=== PATIENT | male | born 1950 | race Two or more races ===

== ENCOUNTER 2021-03-12 18:21 | Inpatient (IN) | payer OTHER ==
[~2021-03-12] VITALS: Ht 182.9 cm; Wt 108.9 kg
[2021-03-12] MEDS ORDERED: METRONIDAZOLE500 MG PO (18:46)
[2021-03-12] MEDS ORDERED: PANTOPRAZOLE SO40 M2 PO (18:46)
[2021-03-12] MEDS ORDERED: INSULIN SYRING1 EA29 MC (18:48)
[2021-03-12] MEDS ORDERED: LIPITOR80 MG PO (18:48)
[2021-03-12] MEDS ORDERED: LANTUS SOL100 UNIT/1 SQ (18:48)
[2021-03-12] MEDS ORDERED: AVALIDE 300-121 EACH PO (18:48)
[2021-03-13] MEDS ORDERED: TADALAFIL20 MG (08:23)
== END 2021-03-20 13:58 | disposition home or self-care (01) | DRG 982 ==
LOC: ER 18:21 → MEDJ 23:17
PROVIDERS: ADMIT Internal Medicine; ATTEND Internal Medicine
PROC: B53CZZZ Magnetic Resonance Imaging (MRI) of Left Lower Extremity Veins (ICD-10-PCS; 2021-03-13)
PROC: B44HZZZ Ultrasonography of Bilateral Lower Extremity Arteries (ICD-10-PCS; 2021-03-13)
PROC: 0JDR0ZZ Extraction of Left Foot Subcutaneous Tissue and Fascia, Open Approach (ICD-10-PCS; principal; 2021-03-14)
PROC: 0J9R0ZZ Drainage of Left Foot Subcutaneous Tissue and Fascia, Open Approach (ICD-10-PCS; 2021-03-14)
PROC: 02HV33Z Insertion of Infusion Device into Superior Vena Cava, Percutaneous Approach (ICD-10-PCS; 2021-03-14)
DX: E11.621 Type 2 diabetes mellitus with foot ulcer (principal); L97.423 Non-pressure chronic ulcer of left heel and midfoot with necrosis of muscle; L03.116 Cellulitis of left lower limb; E11.65 Type 2 diabetes mellitus with hyperglycemia; E11.40 Type 2 diabetes mellitus with diabetic neuropathy, unspecified; D72.828 Other elevated white blood cell count; I10 Essential (primary) hypertension; E78.5 Hyperlipidemia, unspecified; Z79.4 Long term (current) use of insulin; Z86.16 Personal history of COVID-19; E66.9 Obesity, unspecified

== ENCOUNTER 2022-08-17 09:19 | Outpatient (CLI) | payer OTHER ==
[~2022-08-17 09:19] MED LIST: AVALIDE 300-121 EACH PO; INSULIN SYRING1 EA29 MC; LANTUS SOL100 UNIT/1 SQ; LIPITOR80 MG PO; METRONIDAZOLE500 MG PO; PANTOPRAZOLE SO40 M2 PO; TADALAFIL20 MG
== END 2022-08-17 09:34 | disposition home or self-care (01) ==
LOC: SONOGRAMA 09:19
PROVIDERS: ATTEND Physical Medicine & Rehabilitation
DX: K76.0 Fatty (change of) liver, not elsewhere classified (principal)

== ENCOUNTER 2022-10-20 04:27 | Inpatient (IN) | payer OTHER ==
[~2022-10-20] VITALS: Ht 182.9 cm; Wt 109.8 kg
[2022-10-20] MEDS ORDERED: JARDIANCE25 MG PO (04:40)
[2022-10-21] MEDS ORDERED: DULOXETINE HCL30 MG (08:41)
[2022-10-21] MEDS ORDERED: FLUCONAZOLE100 MG (08:41)
[2022-10-21] MEDS ORDERED: SYNJARDY 12.5-1 EAC1 (08:42)
[2022-10-21] MEDS ORDERED: OZEMPIC0.25 MG/01 (08:42)
== END 2022-10-23 14:59 | disposition home or self-care (01) | DRG 639 ==
LOC: ER 04:27 → ICU-2 08:22
PROVIDERS: General Practice; ADMIT Internal Medicine; ATTEND Internal Medicine
PROC: 4A12X4Z Monitoring of Cardiac Electrical Activity, External Approach (ICD-10-PCS; principal; 2022-10-20)
PROC: 3E0F7SF Introduction of Other Gas into Respiratory Tract, Via Natural or Artificial Opening (ICD-10-PCS; 2022-10-20)
DX: E11.10 Type 2 diabetes mellitus with ketoacidosis without coma (principal); I10 Essential (primary) hypertension; Z79.4 Long term (current) use of insulin

== ENCOUNTER 2022-12-06 12:20 | Outpatient (CLI) | payer OTHER ==
[~2022-12-06 12:20] MED LIST changes: +DULOXETINE HCL30 MG; +FLUCONAZOLE100 MG; +JARDIANCE25 MG PO; +OZEMPIC0.25 MG/01; +SYNJARDY 12.5-1 EAC1
== END 2022-12-06 12:30 | disposition home or self-care (01) ==
LOC: RAD 12:20
PROVIDERS: ATTEND Internal Medicine
DX: S19.9XXA Unspecified injury of neck, initial encounter (principal); M25.512 Pain in left shoulder; M25.511 Pain in right shoulder; T14.8XXA Other injury of unspecified body region, initial encounter

== ENCOUNTER 2022-12-23 11:07 | Outpatient (CLI) | payer OTHER | END 2022-12-23 11:08 | disposition home or self-care (01) | LOC: NUCLEAR 11:07 | PROVIDERS: ATTEND Internal Medicine | DX: I73.9 Peripheral vascular disease, unspecified (principal); I87.2 Venous insufficiency (chronic) (peripheral) ==

== ENCOUNTER 2023-04-25 12:09 | Outpatient (CLI) | payer OTHER ==
[~2023-04-25 12:09] MED LIST changes: +VOLTAREN ARTHRI20 GM TOP
== END 2023-04-25 12:19 | disposition home or self-care (01) ==
LOC: SONOGRAMA 12:09
PROVIDERS: ATTEND Physical Medicine & Rehabilitation
DX: M25.512 Pain in left shoulder (principal)

== ENCOUNTER → 2023-10-17 10:04 | Outpatient (CLI) | payer OTHER | END | disposition home or self-care (01) | LOC: NUCLEAR 10:00 | DX: I73.9 Peripheral vascular disease, unspecified (principal) ==

== ENCOUNTER → 2023-11-23 | Outpatient (CLI) | payer OTHER | END | disposition home or self-care (01) | LOC: WOUND MED 09:30 | PROVIDERS: ATTEND Surgery | DX: L97.522 Non-pressure chronic ulcer of other part of left foot with fat layer exposed (principal) | CPT/HCPCS: 97602; A4927; A6021; A6223 ==

== ENCOUNTER 2024-05-21 11:21 | Inpatient (IN) | payer OTHER ==
[~2024-05-21] VITALS: Ht 182.9 cm; Wt 113.4 kg
--- NOTE | 2024-05-21 12:21 | NUR ---
PACIENTE REFIERE MALESTAR GENERAL Y DOLOR EN PIE JON DESDE HACE 3 PAT[address]SON. SE MIDEN Y REPORTAN SIGNOS VITALES Y SE UBICA EN AREA DE FAST TRACK.
[2024-05-21] MEDS ORDERED: 0.9 % SODIUM CHLORIDE 1,000 ML IV STA (13:59)
[2024-05-21] MEDS ORDERED: PIPERACILLIN/TAZOBACTAM SODIUM 3.375 GM VIAL IV STA (14:00)
[2024-05-21] MEDS ORDERED: KETOROLAC TROMETHAMINE 30 MG VIAL IV STA (14:00)
[2024-05-21 16:16] LABS: PH,URINE 5.5 (5.0-8.0); URINE APPEARANCE Clear; URINE BILIRRUBIN Negative (NEGATIVE); URINE BLOOD Negative; URINE COLOR Yellow; URINE KETONE 15 (NEGATIVE); URINE LEUKOCYTE Negative; URINE NITRATE Negative; URINE PROTEIN Trace (NEGATIVE); URINE UROBILINOGEN 0.2 E.U./dl
[2024-05-21 16:20] LABS: URINE RBC 3.8 uL (0.0-20.8)
--- NOTE | 2024-05-21 16:46 | NUR ---
SE ORIENTA PTE SOBRE TX A SEGUIR, EL MISMO REFIERE ENTENDER. SE DAVION MUESTRA DE LAB, SE CANALIZA Y SE ADMINISTRA MED LEWIS ORDEN MEDICA
[2024-05-21 16:50] LABS: URINE BACTERIA 3.6 uL (0.0-1933); URINE EPITHELIAL CELLS 1.1 uL (0.0-38.8); URINE GLUCOSE 100 MG/DL (NEGATIVE); URINE WBC 0.3 uL (0.0-23.2)
[2024-05-21 16:51] LABS: ERYTHROCYTE SEDIMENTATION RATE 44 mm/hr
[2024-05-21 16:52] LABS: HEMATOCRIT 41.7 % (39.0-48.0); HEMOGLOBIN 14.4 g/dL (13-16.00); MEAN CELL VOLUME 93.4 fL (80.0-100.00); MEAN CORPUSCULAR HEMOGLOBIN 32.2 pg (27.00-32.0); MEAN CORPUSCULAR HGB CONC 34.5 g/dl (32.0-36.0); PLATELET COUNT 164 K/uL (150-450); RED BLOOD COUNT 4.47 M/uL (4.00-6.00); RED CELL DISTRIBUTION WIDTH 14.2 % (11.5-14.5)
[2024-05-21 17:11] LABS: ALBUMIN 3.2 gm/dL (3.4-5.0); BILIRUBIN TOTAL 0.91 mg/dL (0.3-1.2); CREATININE SERUM 0.71 mg/dL (0.70-1.30); GFR 108.75; GLOBULINA 3.8 G/DL (2.4-3.5); POTASSIUM 4.35 mEq/L (3.5-5.1)
[2024-05-21] MEDS ORDERED: OSELTAMIVIR PHOSPHATE 75 MG CAPSULE PO ONE (20:00)
[2024-05-21] MEDS ORDERED: ASPIRIN 81 MG TABLET.EC PO ONE (20:00)
[2024-05-21] MEDS ORDERED: BENZONATATE 100 MG CAPSULE PO SCH (23:41)
[2024-05-21] MEDS ORDERED: ACETAMINOPHEN 500 MG GEL..CAP PO PRN (23:45)
[2024-05-21] MEDS ORDERED: INSULIN LISPRO 1,000 UNIT/10 ML UNITS SUBCUTANEO PRN (23:45)
[2024-05-21] MEDS ORDERED: 0.9 % SODIUM CHLORIDE 1,000 ML IV SCH (23:45)
[2024-05-21] MEDS ORDERED: DEXTROSE 50 % IN WATER 0.5 G/ML DISP.SYRIN IV PRN (23:45)
[2024-05-22] MEDS ORDERED: PIPERACILLIN/TAZOBACTAM SODIUM 3.375 GM in DEXTROSE 5 % IN WATER 100 ML IV SCH
[2024-05-22 07:12] LABS: INR 1.02; PARTIAL THROMBOPLASTIN TIME 28.2 SECONDS (22.0-34.0); PROTHROMBIN TIME 11.1 SECONDS (9.0-11.5)
[2024-05-22 08:13] VITALS: BP 166/89; O2SAT 95
[2024-05-22] MEDS ORDERED: VANCOMYCIN HCL 1,000 MG VIAL IV STA (08:13)
[2024-05-22] MEDS ORDERED: ENOXAPARIN SODIUM 40 MG/0.4 ML SYRINGE SUBCUTANEO SCH (09:00)
[2024-05-22] MEDS ORDERED: OSELTAMIVIR PHOSPHATE 75 MG CAPSULE PO SCH (09:00)
[2024-05-22] MEDS ORDERED: VANCOMYCIN HCL 1,000 MG VIAL IV SCH (09:00)
[2024-05-22] MEDS ORDERED: METOPROLOL SUCCINATE 50 MG TAB.SR.24H PO SCH (09:00)
[2024-05-22] MEDS ORDERED: IRBESARTAN 150 MG TABLET PO SCH (09:00)
[2024-05-22] MEDS ORDERED: VANCOMYCIN HCL 1,000 MG VIAL ONE (15:13)
[2024-05-22 16:16] VITALS: BP 160/70; O2SAT 95
[2024-05-22] MEDS ORDERED: INSULIN GLARGINE,HUM.REC.ANLOG 1,000 UNITS/10 ML UNITS SUBCUTANEO SCH (17:00)
[2024-05-23 00:26] VITALS: BP 170/74; O2SAT 98
[2024-05-23] MEDS ORDERED: VANCOMYCIN HCL 1,000 MG VIAL ONE (06:24)
[2024-05-23 06:32] LABS: HEMOGLOBIN 14.8 g/dL (13-16.00); MEAN CELL VOLUME 95.3 fL (80.0-100.00); MEAN CORPUSCULAR HGB CONC 33.6 g/dl (32.0-36.0); PLATELET COUNT 150 K/uL (150-450); RED BLOOD COUNT 4.61 M/uL (4.00-6.00)
[2024-05-23 07:32] LABS: ALBUMIN 3.2 gm/dL (3.4-5.0); BILIRUBIN TOTAL 0.65 mg/dL (0.3-1.2); CALCIUM 8.7 mg/dL (8.5-10.1); CREATININE SERUM 0.59 mg/dL (0.70-1.30); GFR 134.65; GLOBULINA 3.7 G/DL (2.4-3.5); MAGNESIUM 2.2 mg/dL (1.8-2.4); PHOSPHOROUS 3.5 mg/dL (2.5-4.9); POTASSIUM 4.25 mEq/L (3.5-5.1); TOTAL PROTEIN 6.9 gm/dL (6.4-8.2)
[2024-05-23 07:36] LABS: C-REACTIVE PROTEIN 1.16 MG/DL (0.00-0.29)
[2024-05-23 08:00] VITALS: BP 200/92; O2SAT 97
[2024-05-23 09:57] VITALS: BP 180/81
[2024-05-23] MEDS ORDERED: hydrALAZINE HCL 20 MG VIAL IV PRN (14:30)
[2024-05-23] MEDS ORDERED: GABAPENTIN 300 MG CAPSULE PO SCH (21:00)
[2024-05-24 00:32] VITALS: BP 190/100; O2SAT 97
[2024-05-24 04:30] VITALS: BP 186/93
[2024-05-24] MEDS ORDERED: VANCOMYCIN HCL 1,000 MG VIAL ONE (06:51)
[2024-05-24] MEDS ORDERED: INSULIN LISPRO 1,000 UNIT/10 ML UNITS SUBCUTANEO STA (08:19)
[2024-05-24] MEDS ORDERED: ATORVASTATIN CALCIUM 40 MG TABLET PO SCH (09:00)
[2024-05-24] MEDS ORDERED: PANTOPRAZOLE SODIUM 40 MG/VIAL VIAL IV SCH (09:00)
[2024-05-24] MEDS ORDERED: IRBESARTAN 300 MG TABLET PO SCH (09:00)
[2024-05-24] MEDS ORDERED: INSULIN GLARGINE,HUM.REC.ANLOG 1,000 UNITS/10 ML UNITS SUBCUTANEO SCH (09:00)
[2024-05-24] MEDS ORDERED: AMLODIPINE BESYL5 MG PO (10:08)
[2024-05-24] MEDS ORDERED: AVAPRO300 MG PO (10:08)
[2024-05-24] MEDS ORDERED: LIPITOR40 M1 PO (10:08)
[2024-05-24] MEDS ORDERED: TOPROL XL50 M1 PO (10:09)
[2024-05-24] MEDS ORDERED: GABAPENTIN300 MG PO (10:09)
[2024-05-24] MEDS ORDERED: JARDIANCE25 MG PO (10:16)
[2024-05-24 10:19] VITALS: BP 144/75; O2SAT 99
[2024-05-24] MEDS ORDERED: SYNJARDY 12.5-1 EAC1 PO (10:19)
[2024-05-24] MEDS ORDERED: AMOX-CLAV 875-1 EACH PO (10:25)
[2024-05-24] MEDS ORDERED: DOXYCYCLINE HY100 MG PO (10:27)
[2024-05-24] MEDS ORDERED: XANAX1 MG PO (10:34)
[2024-05-24] MEDS ORDERED: PROTONIX40 MG PO (10:34)
[2024-05-24] MEDS ORDERED: INSULIN LISPRO 1,000 UNIT/10 ML UNITS SUBCUTANEO SCH (12:00)
[2024-05-24] MEDS ORDERED: AMLODIPINE BESYLATE 10 MG TABLET PO SCH (17:00)
[2024-05-24] MEDS ORDERED: AMLODIPINE BESYLATE 5 MG TABLET PO SCH (17:00)
== END 2024-05-24 13:54 | disposition home or self-care (01) | DRG 603 ==
LOC: ER 11:22 → SURG 23:39
PROVIDERS: General Practice; Internal Medicine Infectious Disease; ADMIT Internal Medicine; ATTEND Internal Medicine
PROC: 8E0ZXY6 Isolation (ICD-10-PCS; principal; 2024-05-21)
PROC: B54DZZZ Ultrasonography of Bilateral Lower Extremity Veins (ICD-10-PCS; 2024-05-21)
PROC: B44HZZZ Ultrasonography of Bilateral Lower Extremity Arteries (ICD-10-PCS; 2024-05-21)
PROC: BQ3LZZZ Magnetic Resonance Imaging (MRI) of Right Foot (ICD-10-PCS; 2024-05-22)
DX: L03.116 Cellulitis of left lower limb (principal); L03.115 Cellulitis of right lower limb; R05.9 Cough, unspecified; J11.1 Influenza due to unidentified influenza virus with other respiratory manifestations; Z78.9 Other specified health status; Z79.4 Long term (current) use of insulin; E11.65 Type 2 diabetes mellitus with hyperglycemia; I73.9 Peripheral vascular disease, unspecified
CPT/HCPCS: 73221; 73718

== ENCOUNTER 2024-06-06 11:35 | Outpatient (CLI) | payer OTHER ==
[~2024-06-06 11:35] MED LIST changes: +AMLODIPINE BESYL5 MG PO; +AMOX-CLAV 875-1 EACH PO; +AVAPRO300 MG PO; +DOXYCYCLINE HY100 MG PO; +GABAPENTIN300 MG PO; +LIPITOR40 M1 PO; +PROTONIX40 MG PO; +SYNJARDY 12.5-1 EAC1 PO; +TOPROL XL50 M1 PO; +XANAX1 MG PO
== END 2024-06-06 11:43 | disposition home or self-care (01) ==
LOC: MRI 11:35
PROVIDERS: ATTEND Internal Medicine
DX: L03.116 Cellulitis of left lower limb (principal)
CPT/HCPCS: 73718